=== PATIENT | female | born 2000 | race Caucasian/White ===

== ENCOUNTER 2024-06-03 08:42 | Emergency (ER) | payer SELFPAY ==
[2024-06-03 08:56] VITALS: BP 134/81
[2024-06-03 09:12] LABS: % Basophils 0.3 % (0-2); % Eosinophils 0.1 % (0-6); % Immature Granulocytes 0.3 % (0-0.5); % Lymphocytes 9.6 % (20.5-51.1); % Monocytes 7.5 % (1.7-9.3); % Neutrophils 82.2 % (42.2-75.2); Absolute Lymphocytes 0.7 10^3/uL (1.2-3.4); Absolute Monocytes 0.5 10^3/uL (0.1-0.6); Absolute Neutrophils 5.9 10^3/uL (1.4-6.5); Hematocrit 42.7 % (37.0-47.0); Mean Corp Hgb Conc. 35.1 g/dL (33.0-37.0); Mean Corpuscular Volume 85.4 fL (81.0-99.0); Mean Platelet Volume 9.2 fL (7.4-10.4); Nucleated Red Blood Cells % 0 %; Platelet Count 289 10^3/uL (130-400); Red Cell Dist. Width 13.2 % (11.5-14.5); White Blood Cell Count 7.2 10^3/uL (4.8-10.8)
--- NOTE | 2024-06-03 09:59 | ED.GENMED ---
History of Present Illness
General
Chief Complaint: Abdominal Symptoms
Source: patient
Exam Limitations: none
Time Seen by Provider: 06/03/24 09:45
History of Present Illness
History of Present Illness:
23-year-old otherwise healthy female presents with onset of vomiting right-sided flank discomfort and diarrhea last night. The pain radiated to her abdomen slightly. She noted chills and sweats but no measurable fever. No chest pain or shortness
of breath. No urinary symptoms. Last menstrual cycle was about 2 weeks ago. She has a history of ovarian cyst. No known sick contacts. No other complaints at this time
Past History
Past History
ED Past Medical History: Other (Kidney stones)
ED Past Surgical History: None
Social History
Tobacco: Non-smoker
Alcohol: Occasional
Drug: None
Personal: Single
Living: with family
Phy Exam
Physical Exam
Physical Exam:
General: Well-appearing female no acute respiratory distress
HEENT: Normocephalic atraumatic
Heart: Tachycardic but regular
Lungs: Clear no wheeze
Abdomen soft mild right-sided flank tenderness no tenderness over McBurney's point normal bowel sounds no guarding or rebound
Extremities: No cyanosis
Course
Orders/Labs/Results
Orders:
Orders
06/03/24 08:55
Electrocardiogram (*1) Urgent
Reason for Study: Tachycardia
EKG- Treatment ONCE
Test Result ONCE
06/03/24 09:08
Complete Blood Count/With Diff Urgent
06/03/24 09:58
0.9% Sodium Chloride 1000 ml [Nss] 1,000 ml IV BOLUS
Ketorolac [Toradol] 15 mg IV NOW STA
Ondansetron Injectable [Zofran] 4 mg IV NOW STA
06/03/24 09:59
CT Abd/pel Without Iv Or Oral Urgent
Comment:
Reason For Exam: right flank pain
06/03/24 11:24
Comprehensive Metabolic Panel Urgent
HCG, Serum Qualitative Screen Urgent
06/03/24 11:26
Add On- LAB Urgent
Tests Added?: HCG qual
Abnormal Lab Results
06/03/24 06/03/24
09:08 11:24
Absolute Lymphs (auto) 0.7 L 10^3/uL
(1.2-3.4)
Neutrophils % 82.2 H %
(42.2-75.2)
Lymphocytes % 9.6 L %
(20.5-51.1)
Carbon Dioxide 21 L mmol/L
(22-30)
06/03/24 09:08
06/03/24 11:24
Vital Signs
Initial and Last Documented VS:
Initial Vital Signs
Temp Pulse Resp BP Pulse Ox
98.3 F 122 16 134/81 100
06/03/24 08:56 06/03/24 08:56 06/03/24 08:56 06/03/24 08:56 06/03/24 08:56
Last Documented Vital Signs
Temp Pulse Resp BP Pulse Ox
98.3 F 122 15 112/69 100
06/03/24 08:56 06/03/24 08:56 06/03/24 10:00 06/03/24 11:32 06/03/24 11:45
MDM/Problems Addressed
Differential Diagnosis Includes:
Flank pain vomiting and diarrhea. Consider viral illness versus renal colic. No signs on exam or history to suggest appendicitis. Patient does appear dry concern for electrolyte abnormality. Will check labs hydrate treat symptoms with Zofran and
Toradol. CT with out contrast pending to evaluate for renal stone as she has a history of these
*Critical Care Note
Total Time (30-74mins, 75-104mins- exclusive of procedures): Not Applicable
Update Note
Update Note:
CT demonstrates 2 mm stone in the right ureteropelvic junction this is not obstructing. Patient feeling much better after hydration and nausea medicine. Patient is pain-free currently. Advise follow-up with urology. Stable for discharge
ED Attending Note
-
Portions of this chart may have been created with voice recognition software.� Occasional wrong word or��sound alike� substitutions may have occurred due to the inherent limitations of voice recognition software.
Discharge Plan
Departure
Patient Disposition: Home (Routine Discharge)
Date of Disposition: 06/03/24
Time of Disposition: 12:42
Patient with high blood pressure during this ER visit?: No
Discharge Problem:
Kidney stone
Instructions: Kidney Stone, Adult ED
Prescriptions:
New
ondansetron 4 mg tablet,disintegrating
4 mg PO Q8H PRN (Reason: nausea and vomiting) Qty: 10 0RF
tamsulosin [Flomax] 0.4 mg capsule
0.4 mg PO DAILY Qty: 14 0RF
Referrals:
Yohana Ortiz DO [Family Provider] -
Wesley Cope Jr., MD [Active] -
Activity Restrictions/Additional Instructions:
Drink plenty of fluids. Use Zofran if needed. Use Flomax as directed. Strain the urine. Follow-up with urology
Interventions
Interventions:
*Risk Screen - Suicide Last Done: 06/03/24 08:56
*Neglect/Abuse Screening Last Done: 06/03/24 08:56
*ED COVID-19 Vaccine History Last Done: 06/03/24 08:56
ZY-Hcgkix-Rkecqatxfq Assessment Last Done: 06/03/24 10:41
Discharge Date and Time
Print Language: AMHARIC
[2024-06-03 10:07] VITALS: BMI 27.0
[2024-06-03] MEDS: TORADOL 15 MG IV (11:00)
[2024-06-03] MEDS: NSS 1000 IV (11:00)
[2024-06-03] MEDS: ZOFRAN 4 MG IV (11:00)
[2024-06-03 11:32] VITALS: BP 112/69
[2024-06-03 11:45] LABS: HCG, Serum Qualitative Screen Negative
[2024-06-03 11:49] LABS: ALT (SGPT) 16 U/L (0-35); AST (SGOT) 17 U/L (14-36); Albumin 4.4 g/dl (3.5-5.0); Alkaline Phosphatase 47 U/L (38-126); Blood Urea Nitrogen 12 mg/dl (7-17); Carbon Dioxide 21 mmol/L (22-30); Chloride 103 mmol/L (98-107); Estimated Creatinine Clearance > 125 ml/min; Glucose 83 mg/dl (70-99); Potassium 3.6 mmol/L (3.5-5.1); Sodium 139 mmol/L (135-145); Total Bilirubin 0.6 mg/dl (0.2-1.3); Total Protein 6.8 g/dl (6.3-8.2); eGFR > 60.00
== END 2024-06-03 12:54 | disposition home or self-care (01) ==
LOC: EMR 08:42
PROVIDERS: Emergency Medicine; EMERGENCY PHYSICIAN Student in an Organized Health Care Education/Training Program; FAMILY PHYSICIAN Family Medicine
DX: N20.0 Calculus of kidney (principal); Z87.442 Personal history of urinary calculi
CPT/HCPCS: 99284; 96374; 96375; 96361; 74176; 80053; 84703; 85025; 93005

== ENCOUNTER 2024-06-15 00:42 | Emergency (ER) | payer OTHER, SELFPAY ==
[2024-06-15 00:43] VITALS: BP 134/94
[2024-06-15 01:01] LABS: Urine Albumin Trace (Neg - Trace); Urine Bilirubin Negative (Negative); Urine Character Slightly Cloudy (Clear); Urine Color Yellow; Urine Glucose Negative (Negative); Urine Ketone Trace (Negative); Urine Leukocyte Trace (Negative); Urine Nitrite Negative (Negative); Urine Occult Blood 4+ (Negative); Urine Urobilinogen Negative (Neg - 1+)
[2024-06-15 01:04] LABS: HCG, Urine Qualitative Screen Negative
[2024-06-15 01:13] LABS: Urine Amorphous Seen; Urine Bacteria Many (Negative); Urine Mucus Many; Urine Red Blood Cell >100 /HPF (0-2); Urine Squamous Cell >30 /LPF (Few)
[2024-06-15 01:21] LABS: Urine Yeast Few (Negative)
--- NOTE | 2024-06-15 01:44 | ED.GENMED ---
History of Present Illness
<LENA Covarrubias - Last Filed: 06/15/24 17:57>
General
Chief Complaint: Flank Pain
Source: patient
Exam Limitations: none
Time Seen by Provider: 06/15/24 01:33
History of Present Illness
History of Present Illness:
This is a 23 year old female that comes in with c/o left flank pain. States that she was here 2 weeks ago for kidney stones. States that she went to Se her PCP This week. States that she was told that there were 4 stones in her kidney. State that
around 5pm tonight she started with pain in her bladder. States that she thought it was a UTI. Then she started with left flank pain with nausea and vomiting. States that when she went to the Bathroom her she thought she saw a stone in her urine.
States that now she just feels sore. Denies any fever, chills, chest pain, SOB, diarrhea, headache, dizziness, urinary burning.
Past History
<LENA Covarrubias - Last Filed: 06/15/24 17:57>
Past History
ED Past Medical History: Asthma and Other (Kidney stones)
ED Past Surgical History: None
Social History
Tobacco: Non-smoker
Alcohol: Occasional
Drug: None
Personal: Single
Living: with family
Review of Systems
<LENA Covarrubias - Last Filed: 06/15/24 17:57>
Review of Systems
All Other Systems: ROS reviewed and negative except as documented in HPI and ROS
Constitutional: Reports no symptoms; Denies fever or chills
EENT: Reports no symptoms
Respiratory: Reports no symptoms; Denies cough or trouble breathing
Cardiac: Reports no symptoms; Denies chest pain
ABD/GI: Reports nausea and vomiting; Denies abdominal pain or diarrhea
: Reports flank pain (Left sided); Denies dysuria, frequency or urgency
Musculoskeletal: Reports no symptoms
Skin: Reports no symptoms
Neurological: Reports no symptoms; Denies dizzy or headache
Psychiatric: Reports no symptoms
Phy Exam
<LENA Covarrubias - Last Filed: 06/15/24 17:57>
General Physical Exam
General Presentation: well appearing and no apparent distress
General age: appears stated age
General Skin: warm and dry
General Habitus: normal
General Mental: alert
General Hydration: appears well hydrated
ENT Exam
ENT Exam: TM's normal, pharynx normal and neck supple
Eye Exam
Eye Exam: EOMI
Cardiovascular Exam
Cardiovascular Exam: regular rate/rhythm, no edema, no murmur and normal peripheral pulses
Pulmonary Exam
Pulmonary Exam: lungs clear, no respiratory distress, no rales, chest non tender, no crackles, no rhonchi, no wheezing and no cough
Gastrointestinal Exam
Gastrointestinal Exam: normal bowel sounds, soft, no organomegaly, no pulsatile mass, non distended, cva tenderness and tender (Slight left sided 'soreness' with palpation)
Musculoskeletal Exam
Musculoskeletal Exam: full ROM and no edema
Skin Exam
Skin Exam: normal color, warm/dry, no rash and no petechia
Psychiatric Exam
Psychiatric Exam: normal mood/affect
Course
<LENA Covarrubias - Last Filed: 06/15/24 17:57>
Orders/Labs/Results
Orders:
Orders
06/15/24 00:47
Test Result ONCE
06/15/24 00:50
HCG, Urine Qualitative Screen Urgent
Date Specimen was Collected: 06/15/24
Time Specimen was Collected: 00:47
Urinalysis Reflex To Culture Urgent
Date Specimen was Collected: 06/15/24
Time Specimen was Collected: 00:47
Urine Microscopic Reflex Cult Urgent
Urine Culture Urgent
MARYCARMEN Source: U
Specimen Description:
Date Specimen was Collected: 06/15/24
Time Specimen was Collected: 00:47
06/15/24 01:43
0.9% Sodium Chloride 1000 ml [Nss] 1,000 ml IV BOLUS
Test Result ONCE
US Renal With Bladder Urgent
Comment:
Reason For Exam: Left flank pain and bladder pain
06/15/24 02:21
Complete Blood Count/With Diff Urgent
Comprehensive Metabolic Panel Urgent
06/15/24 02:26
Ketorolac [Toradol] 30 mg IV NOW STA
Abnormal Lab Results
06/15/24 06/15/24
00:50 02:21
WBC 12.1 H 10^3/uL
(4.8-10.8)
Absolute Neuts (auto) 9.1 H 10^3/uL
(1.4-6.5)
Absolute Monos (auto) 1.0 H 10^3/uL
(0.1-0.6)
Neutrophils % 75.5 H %
(42.2-75.2)
Lymphocytes % 14.3 L %
(20.5-51.1)
Urine Ketones Trace A
(Negative)
Ur Occult Blood Reflex 4+ A
(Negative)
Leukocyte Esterase Rfl Trace A
(Negative)
Urine RBC >100 A /HPF
(0-2)
Urine Bacteria (Reflex) Many A
(Negative)
Urine Yeast Few A
(Negative)
06/15/24 02:21
06/15/24 02:21
Urine negative for infection. HCG negative, Leukocytosis,
Vital Signs
Initial and Last Documented VS:
Initial Vital Signs
Temp Pulse Resp BP Pulse Ox
98.2 F 86 16 134/94 99
06/15/24 00:43 06/15/24 00:43 06/15/24 00:43 06/15/24 00:43 06/15/24 00:43
Last Documented Vital Signs
Temp Pulse Resp BP Pulse Ox
97.4 F 72 14 123/66 99
06/15/24 06:14 06/15/24 06:14 06/15/24 06:14 06/15/24 06:14 06/15/24 06:14
<Alfonso Pathak, DO - Last Filed: 06/15/24 06:09>
Orders/Labs/Results
Orders:
Orders
06/15/24 00:47
Test Result ONCE
06/15/24 00:50
HCG, Urine Qualitative Screen Urgent
Date Specimen was Collected: 06/15/24
Time Specimen was Collected: 00:47
Urinalysis Reflex To Culture Urgent
Date Specimen was Collected: 06/15/24
Time Specimen was Collected: 00:47
Urine Microscopic Reflex Cult Urgent
Urine Culture Urgent
MARYCARMEN Source: U
Specimen Description:
Date Specimen was Collected: 06/15/24
Time Specimen was Collected: 00:47
06/15/24 01:43
0.9% Sodium Chloride 1000 ml [Nss] 1,000 ml IV BOLUS
Test Result ONCE
US Renal With Bladder Urgent
Comment:
Reason For Exam: Left flank pain and bladder pain
06/15/24 02:21
Complete Blood Count/With Diff Urgent
Comprehensive Metabolic Panel Urgent
06/15/24 02:26
Ketorolac [Toradol] 30 mg IV NOW STA
Abnormal Lab Results
06/15/24 06/15/24
00:50 02:21
WBC 12.1 H 10^3/uL
(4.8-10.8)
Absolute Neuts (auto) 9.1 H 10^3/uL
(1.4-6.5)
Absolute Monos (auto) 1.0 H 10^3/uL
(0.1-0.6)
Neutrophils % 75.5 H %
(42.2-75.2)
Lymphocytes % 14.3 L %
(20.5-51.1)
Urine Ketones Trace A
(Negative)
Ur Occult Blood Reflex 4+ A
(Negative)
Leukocyte Esterase Rfl Trace A
(Negative)
Urine RBC >100 A /HPF
(0-2)
Urine Bacteria (Reflex) Many A
(Negative)
Urine Yeast Few A
(Negative)
06/15/24 02:21
06/15/24 02:21
Vital Signs
Initial and Last Documented VS:
Initial Vital Signs
Temp Pulse Resp BP Pulse Ox
98.2 F 86 16 134/94 99
06/15/24 00:43 06/15/24 00:43 06/15/24 00:43 06/15/24 00:43 06/15/24 00:43
Last Documented Vital Signs
Temp Pulse Resp BP Pulse Ox
97.4 F 72 14 123/66 99
06/15/24 06:14 06/15/24 06:14 06/15/24 06:14 06/15/24 06:14 06/15/24 06:14
<LENA Covarrubias - Last Filed: 06/15/24 17:57>
MDM/Problems Addressed
Differential Diagnosis Includes:
renal calculus, UTI
MDM/Problems Addressed:
This is a 23 year old female that comes in with c/o bladder pain and then nausea, vomiting and left flank pain. Patient as here 2 weeks ago with renal calculus. State that she was told that there was 4 stones in her kidney. Tonight she started with
bladder pain and then she has nausea/vomiting and the left flank pain.
Will check labs, and urine, Give IV fluids, and get Ultrasound
Dr. Pathak to follow up on US and recheck patient.
Chronic conditions affecting care:
Renal calculus
Acute Exacerbation and/or Progression of Chronic Illness:
Renal calculus
<LENA Covarrubias - Last Filed: 06/15/24 17:57>
*Pulse Oximetry
Patient hypoxic: no
*EKG
Interpreted by ED Provider?: NA
Rate: EKG- N/A
*Drive Away Driver Interpretation
Rate: Drive Away Driver- N/A
*Critical Care Note
Total Time (30-74mins, 75-104mins- exclusive of procedures): Not Applicable
ED Attending Note
<LENA Covarrubias - Last Filed: 06/15/24 17:57>
-
Portions of this chart may have been created with voice recognition software.� Occasional wrong word or��sound alike� substitutions may have occurred due to the inherent limitations of voice recognition software.
<Alfonso Pathak, DO - Last Filed: 06/15/24 06:09>
ED Attending Note
Patient seen and examined by attending physician: Yes
I performed the substantive portion of visit, reviewed & personally made and approve the management plan that is documented in note by myself or CAROLEE.: Yes
ED Attending Note:
I have seen and evaluated the patient with a [id number] encounter. I have spoken to the advance practicer provider and involved in the medical history, the physical exam, medical decision making.
Evaluation and management service: agree unless noted differently below.
Results interpretation: agree unless noted differently below.
Focused HPI: 23-year-old female presenting with left flank pain. She has a known history of kidney stones. Patient believes she is passing stones in her urine
Physical exam: Sitting in bed comfortably. No acute distress
Medical Decision Making: Renal ultrasound was performed showing no evidence of hydronephrosis indicating that she likely does not have obstructive uropathy. Urine consistent with hematuria. Patient states she has been passing sediment. There is
sediment stone in bladder discussed likely passed as well. She has urology follow-up
Discharge Plan
Departure
Patient Disposition: Home (Routine Discharge)
Date of Disposition: 06/15/24
Time of Disposition: 06:07
Patient with high blood pressure during this ER visit?: No
Condition: Good
Covid-19: Not Applicable
Discharge Problem:
Acute left flank pain
Prescriptions:
No Action
ondansetron 4 mg tablet,disintegrating
4 mg PO Q8H PRN (Reason: nausea and vomiting) Qty: 10 0RF
tamsulosin [Flomax] 0.4 mg capsule
0.4 mg PO DAILY Qty: 14 0RF
Referrals:
Yohana Ortiz DO [Family Provider] -
Activity Restrictions/Additional Instructions:
Please return for any worsening symptoms.
You may return at any time if you have further concerns.
Please keep your urology follow-up. As we discussed, you are likely passing stones. The ultrasound indicated that there is sediment in your bladder. This is likely a collection of small stones that will pass.
Thank you for choosing [facility].
Interventions
Interventions:
*Risk Screen - Suicide Last Done: 06/15/24 00:47
*General Assessment Last Done: 06/15/24 00:43
*Neglect/Abuse Screening Last Done: 06/15/24 00:47
ED- Fall Risk Assessment Last Done: 06/15/24 06:14
*ED COVID-19 Vaccine History Last Done: 06/15/24 00:43
*Nursing Disposition Last Done: 06/15/24 06:14
IK-Rlrvun-Sssfmrsapb Assessment Last Done: 06/15/24 02:00
ED-Female Genitourinary Assessment Last Done: 06/15/24 02:00
Discharge Date and Time
Discharge Date/Time: 06/15/24 06:17
Print Language: GUYANESE
[2024-06-15 01:59] VITALS: BMI 28.2
[2024-06-15] MEDS: NSS 1000 IV (02:23)
[2024-06-15] MEDS: TORADOL 30 MG IV (02:29)
[2024-06-15 02:32] LABS: % Basophils 0.6 % (0-2); % Eosinophils 0.8 % (0-6); % Immature Granulocytes 0.3 % (0-0.5); % Lymphocytes 14.3 % (20.5-51.1); % Monocytes 8.5 % (1.7-9.3); % Neutrophils 75.5 % (42.2-75.2); Absolute Basophils 0.1 10^3/uL (0-0.2); Absolute Eosinophils 0.1 10^3/uL (0-0.7); Absolute Lymphocytes 1.7 10^3/uL (1.2-3.4); Absolute Neutrophils 9.1 10^3/uL (1.4-6.5); Hematocrit 41.7 % (37.0-47.0); Hemoglobin 14.1 g/dL (12.0-16.0); Mean Corp Hgb Conc. 33.8 g/dL (33.0-37.0); Mean Corpuscular Hgb 29.6 pg (27.0-31.0); Mean Corpuscular Volume 87.4 fL (81.0-99.0); Mean Platelet Volume 9.2 fL (7.4-10.4); Nucleated Red Blood Cells % 0 %; Platelet Count 369 10^3/uL (130-400); Red Blood Cell Count 4.77 10^6/uL (4.20-5.40); Red Cell Dist. Width 13.1 % (11.5-14.5); White Blood Cell Count 12.1 10^3/uL (4.8-10.8)
[2024-06-15 02:53] LABS: ALT (SGPT) 33 U/L (0-35); AST (SGOT) 24 U/L (14-36); Albumin 4.9 g/dl (3.5-5.0); Alkaline Phosphatase 54 U/L (38-126); Blood Urea Nitrogen 11 mg/dl (7-17); Calcium 9.8 mg/dl (8.4-10.2); Carbon Dioxide 26 mmol/L (22-30); Chloride 104 mmol/L (98-107); Estimated Creatinine Clearance 119 ml/min; Glucose 85 mg/dl (70-99); Potassium 4.1 mmol/L (3.5-5.1); Sodium 143 mmol/L (135-145); Total Bilirubin 0.5 mg/dl (0.2-1.3); Total Protein 7.4 g/dl (6.3-8.2); eGFR > 60.00
[2024-06-15 03:06] VITALS: BP 126/64
[2024-06-15 06:14] VITALS: BP 123/66
== END 2024-06-15 06:17 | disposition home or self-care (01) ==
LOC: EMR 00:42
PROVIDERS: Clinical Nurse Specialist Family Health; EMERGENCY PHYSICIAN Student in an Organized Health Care Education/Training Program; FAMILY PHYSICIAN Family Medicine
DX: N20.0 Calculus of kidney (principal); J45.909 Unspecified asthma, uncomplicated
CPT/HCPCS: 96374; 96361; 99284; 76770; 80053; 81003; 81015; 81025; 85025; 87086

== ENCOUNTER 2025-01-18 08:37 | Emergency (ER) | payer OTHER, SELFPAY ==
[2025-01-18 08:39] VITALS: BP 125/93
--- NOTE | 2025-01-18 09:05 | ED.GENMED ---
History of Present Illness
General
Chief Complaint: Flank Pain
Source: patient, records and family
Exam Limitations: none
Time Seen by Provider: 01/18/25 08:43
History of Present Illness
History of Present Illness:
24yoF with a history of kidney stones presenting with her mother for evaluation of left flank pain. Symptoms started yesterday evening with a mild ache in her left flank. She took a dose of Flomax which did seem to help. She woke up this morning
around 7 AM with worsening pain. She is now experiencing nausea and had 2 episodes of vomiting. She also has 'UTI pain' but denies any dysuria. Symptoms are identical to her prior kidney stones. She has a history of numerous kidney stones in the
past dating back to age 12. She has never required surgery. She denies any fevers.
Past History
Past History
ED Past Medical History: Asthma and Other (Kidney stones)
ED Past Surgical History: None
Social History
Tobacco: Non-smoker
Alcohol: Occasional
Drug: None
Personal: Single
Living: with family
Phy Exam
Physical Exam
Physical Exam:
Appears uncomfortable, non-toxic
General Physical Exam
General Presentation: mild distress
General Skin: warm and dry
General Habitus: normal
General Mental: alert
ENT Exam
ENT Exam: normocephalic
Pulmonary Exam
Pulmonary Exam: lungs clear, no respiratory distress, no rales, no crackles, no rhonchi and no wheezing
Gastrointestinal Exam
Gastrointestinal Exam: non tender, soft, non distended and other (+L CVA tenderness)
Neurological Exam
Neurological Exam: alert
[place] Coma Scale
Eye Opening: Spontaneous
Verbal Response: Oriented
Motor Response: Obeys Commands
GCS Total Score: 15
Skin Exam
Skin Exam: normal color and warm/dry
Psychiatric Exam
Psychiatric Exam: normal mood/affect
Course
Orders/Labs/Results
Orders:
Orders
01/18/25 09:03
CT Abd/pel Without Iv Or Oral Urgent
Comment:
Reason For Exam: L flank pain
0.9% Sodium Chloride 1000 ml [Nss] 1,000 ml IV BOLUS
HYDROmorphone [Dilaudid] 0.5 mg IV NOW STA
Ketorolac [Toradol] 15 mg IV NOW STA
Test Result ONCE
01/18/25 09:08
Ondansetron HCl [Zofran] 4 mg PO NOW STA
01/18/25 09:12
Ondansetron Injectable [Zofran] 4 mg .ROUTE .STK-MED ONE
Ondansetron Injectable [Zofran] 4 mg IV NOW STA
01/18/25 09:29
Complete Blood Count/With Diff Urgent
Comprehensive Metabolic Panel Urgent
HCG, Serum Qualitative Screen Urgent
Urinalysis Reflex To Culture Urgent
Date Specimen was Collected: 01/18/25
Time Specimen was Collected: 09:11
Urine Microscopic Reflex Cult Urgent
Urine Culture Urgent
MARYCARMEN Source: U
Specimen Description:
Date Specimen was Collected: 01/18/25
Time Specimen was Collected: 09:11
01/18/25 11:41
Ketorolac [Toradol] 15 mg IV NOW STA
Abnormal Lab Results
01/18/25
09:29
WBC 11.0 H 10^3/uL
(4.8-10.8)
Absolute Neuts (auto) 8.0 H 10^3/uL
(1.4-6.5)
Absolute Monos (auto) 0.8 H 10^3/uL
(0.1-0.6)
Lymphocytes % 17.8 L %
(20.5-51.1)
Chloride 111 H mmol/L
(98-107)
Carbon Dioxide 21 L mmol/L
(22-30)
Ur Occult Blood Reflex 4+ A
(Negative)
Leukocyte Esterase Rfl 1+ A
(Negative)
Urine RBC >100 A /HPF
(0-2)
Urine WBC (Reflex) 11-15 A /HPF
(0-5)
Urine Bacteria (Reflex) Moderate A
(Negative)
Urine Albumin (Reflex) 3+ A
(Neg - Trace)
01/18/25 09:29
01/18/25 09:29
Vital Signs
Initial and Last Documented VS:
Initial Vital Signs
Temp Pulse Resp BP Pulse Ox
98.4 F 86 18 125/93 100
01/18/25 08:39 01/18/25 08:39 01/18/25 08:39 01/18/25 08:39 01/18/25 08:39
Last Documented Vital Signs
Temp Pulse Resp BP Pulse Ox
98.4 F 86 18 125/93 100
01/18/25 08:39 01/18/25 08:39 01/18/25 08:39 01/18/25 08:39 01/18/25 09:08
MDM/Problems Addressed
Differential Diagnosis Includes:
24yoF here with L flank pain and vomiting. Hx of kidney stones and this feels the same. VSS and she is afebrile. She appears uncomfortable but is non-toxic. +L CVA tenderness on exam. Differential diagnosis includes but is not limited to: kidney
stone, pyelonephritis, UTI, musculoskeletal
Initial ED plan: Check CBC, CMP, HCG, UA, and CT abdomen without contrast. IV Zofran, Toradol, Dilaudid, and fluid bolus for symptoms.
*Pulse Oximetry
SaO2: 100
Oxygen Mode of Delivery: Room air
Patient hypoxic: no (100%)
*Critical Care Note
Total Time (30-74mins, 75-104mins- exclusive of procedures): Not Applicable
Update Note
Update Note:
CT shows a 3mm stone in the L UVJ. Renal function normal. UA with 11-15 WBC and moderate bacteria although 16-20/LPF squamous epithelial cells present. WBC is mildly elevated at 11 which may be reactive 2/2 vomiting. Repeat temp 98.5. She is
feeling much better on reassessment and is comfortable with discharge. Will cover with cefdinir for possible infection. Supportive care reviewed. Patient declining prescriptions for oxycodone/Zofran. Advised f/u with urology and strict ED return
precautions reviewed. Patient discharged in stable condition.
ED Attending Note
-
Portions of this chart may have been created with voice recognition software.� Occasional wrong word or��sound alike� substitutions may have occurred due to the inherent limitations of voice recognition software.
Discharge Plan
Departure
Patient Disposition: Home (Routine Discharge)
Date of Disposition: 01/18/25
Time of Disposition: 11:41
Patient with high blood pressure during this ER visit?: No
Discharge Problem:
Calculus of distal left ureter, Urinary tract infection
Instructions: Kidney Stones (DC)
Prescriptions:
New
cefdinir 300 mg capsule
300 mg PO BID Qty: 14 0RF
No Action
ondansetron 4 mg tablet,disintegrating
4 mg PO Q8H PRN (Reason: nausea and vomiting) Qty: 10 0RF
tamsulosin [Flomax] 0.4 mg capsule
0.4 mg PO DAILY Qty: 14 0RF
Referrals:
Yohana Ortiz DO [Family Provider, Family Practice]
Daniel Del Valle MD [Active, Urology]
Activity Restrictions/Additional Instructions:
Drink plenty of fluids. Take Flomax and strain your urine until stone has passed.
Take antibiotics as prescribed. Take Tylenol and ibuprofen for pain.
Please call tomorrow to schedule a follow-up with urology. Return to the ER with any worsening symptoms including uncontrolled pain or fevers.
Interventions
Interventions:
*Risk Screen - Suicide Last Done: 01/18/25 08:43
*General Assessment Last Done: 01/18/25 09:46
*Neglect/Abuse Screening Last Done: 01/18/25 08:43
*ED- Fall Risk Assessment Last Done: 01/18/25 09:46
*ED COVID-19 Vaccine History Last Done: 01/18/25 09:46
*Nursing Disposition Last Done: 01/18/25 12:00
VW-Xbnyml-Pxkzdcpkrk Assessment Last Done: 01/18/25 09:46
ED-Female Genitourinary Assessment Last Done: 01/18/25 09:46
Discharge Date and Time
Discharge Date/Time: 01/18/25 12:00
Print Language: MEXICAN
[2025-01-18] MEDS: TORADOL 15 MG IV ×3 (09:24→12:00)
[2025-01-18] MEDS: NSS 1000 IV (09:26)
[2025-01-18] MEDS: ZOFRAN 4 MG IV (09:26)
[2025-01-18] MEDS: DILAUDID 0.5 MG IV (09:27)
[2025-01-18 09:41] LABS: % Basophils 0.7 % (0-2); % Eosinophils 1.1 % (0-6); % Immature Granulocytes 0.4 % (0-0.5); % Lymphocytes 17.8 % (20.5-51.1); % Monocytes 7.3 % (1.7-9.3); % Neutrophils 72.7 % (42.2-75.2); Absolute Basophils 0.1 10^3/uL (0-0.2); Absolute Eosinophils 0.1 10^3/uL (0-0.7); Absolute Monocytes 0.8 10^3/uL (0.1-0.6); Hematocrit 39.4 % (37.0-47.0); Hemoglobin 13.9 g/dL (12.0-16.0); Mean Corp Hgb Conc. 35.3 g/dL (33.0-37.0); Mean Corpuscular Hgb 30.8 pg (27.0-31.0); Mean Corpuscular Volume 87.4 fL (81.0-99.0); Mean Platelet Volume 9.6 fL (7.4-10.4); Nucleated Red Blood Cells % 0 %; Platelet Count 391 10^3/uL (130-400); Red Blood Cell Count 4.51 10^6/uL (4.20-5.40)
[2025-01-18 09:52] LABS: Urine Albumin 3+ (Neg - Trace); Urine Bilirubin Negative (Negative); Urine Character Cloudy (Clear); Urine Color Yellow; Urine Glucose Negative (Negative); Urine Ketone Negative (Negative); Urine Leukocyte 1+ (Negative); Urine Nitrite Negative (Negative); Urine Occult Blood 4+ (Negative); Urine Urobilinogen Negative (Neg - 1+)
[2025-01-18 10:00] LABS: HCG, Serum Qualitative Screen Negative
[2025-01-18 10:09] LABS: ALT (SGPT) 17 U/L (0-35); AST (SGOT) 17 U/L (14-36); Albumin 4.9 g/dl (3.5-5.0); Alkaline Phosphatase 46 U/L (38-126); Blood Urea Nitrogen 7 mg/dl (7-17); Calcium 10.2 mg/dl (8.4-10.2); Carbon Dioxide 21 mmol/L (22-30); Chloride 111 mmol/L (98-107); Glucose 89 mg/dl (70-99); Potassium 4.2 mmol/L (3.5-5.1); Sodium 144 mmol/L (135-145); Total Bilirubin 0.4 mg/dl (0.2-1.3); Total Protein 7.3 g/dl (6.3-8.2); eGFR > 60.00
[2025-01-18 10:43] LABS: Urine Calcium Oxalate Crystals Seen; Urine Squamous Cell 16-20 /LPF (Few)
[2025-01-18 10:44] LABS: Urine Bacteria Moderate (Negative); Urine Red Blood Cell >100 /HPF (0-2)
== END 2025-01-18 12:00 | disposition home or self-care (01) ==
LOC: EMR 08:37
PROVIDERS: Physician Assistant; EMERGENCY PHYSICIAN Emergency Medicine; FAMILY PHYSICIAN Family Medicine
DX: N20.1 Calculus of ureter (principal); J45.909 Unspecified asthma, uncomplicated; Z87.442 Personal history of urinary calculi
CPT/HCPCS: 99284; 96374; 96375; 96376; 96361; 74176; 80053; 81003; 81015; 84703; 85025; 87086

== ENCOUNTER 2025-01-18 18:52 | Emergency (ER) | payer OTHER, SELFPAY ==
[2025-01-18 18:54] VITALS: BP 115/81
--- NOTE | 2025-01-18 19:29 | ED.GENMED ---
History of Present Illness
General
Chief Complaint: Flank Pain
Source: patient and family
Exam Limitations: none
Time Seen by Provider: 01/18/25 19:01
Nursing documentation reviewed up to this point in time: agreed with
History of Present Illness
History of Present Illness:
Patient is a 24-year-old female with history of kidney stones presents to the emergency department with intractable left flank pain. Patient was seen in the emergency department this morning and diagnosed with 3 mm stone near her left UVJ. She was
treated with IV pain medicine and discharged home, comfortable at that time.
Patient states that she started to have worsening pain around 6 PM associated with significant nausea. She denies any episodes of vomiting. She denies any fever or chills. No dysuria or hematuria.
They were concerned given the fact that urine appeared possibly infected and the fact that she had multiple intrarenal calculi noted on CT scan.
Patient has a history of kidney stones that is never required any surgical intervention.
Past History
Past History
ED Past Medical History: Asthma and Other (Kidney stones)
ED Past Surgical History: None
Social History
Tobacco: Non-smoker
Alcohol: Occasional
Drug: None
Personal: Single
Living: with family
Review of Systems
Review of Systems
Allergies reviewed?: Yes
All Other Systems: ROS reviewed and negative except as documented in HPI and ROS
Phy Exam
Physical Exam
Physical Exam:
Vitals: Patient's vital signs are stable. Afebrile
General: Patient is well appearing, no acute distress. Nontoxic appearing
Skin: Warm and dry, no rashes or lesions
Head: Normocephalic, atraumatic
Eyes: Sclera nonicteric.
Throat: Protecting airway
Neck: Normal ROM, no cervical spine tenderness, no meningismus
Cardiac: Regular rate and rhythm, no murmurs.
Pulm: Normal respiratory effort, no wheezes, rales, rhonchi heard on exam
.
Abdomen: Abdomen soft. Mild tenderness in left lower quadrant. Mild left CVA tenderness.
Extremities: No evidence of cyanosis or edema. Palpable DP pulses bilaterally
Neuro: AAOx3. Grossly intact.
Psychiatric: Normal affect.
Course
Orders/Labs/Results
Orders:
Orders
01/18/25 19:22
0.9% Sodium Chloride 1000 ml [Nss] 1,000 ml IV BOLUS
Ketorolac [Toradol] 15 mg IV NOW STA
Ondansetron Injectable [Zofran] 4 mg IV NOW STA
01/18/25 20:22
HYDROmorphone [Dilaudid] 0.5 mg .ROUTE .STK-MED ONE
HYDROmorphone [Dilaudid] 0.5 mg IV NOW STA
01/18/25 21:25
Oxycodone [Roxicodone] 5 mg PO NOW STA
Vital Signs
Initial and Last Documented VS:
Initial Vital Signs
Temp Pulse Resp BP Pulse Ox
98.2 F 68 20 115/81 99
01/18/25 18:54 01/18/25 18:54 01/18/25 18:54 01/18/25 18:54 01/18/25 18:54
Last Documented Vital Signs
Temp Pulse Resp BP Pulse Ox
98.1 F 62 17 105/74 98
01/18/25 21:24 01/18/25 21:24 01/18/25 21:24 01/18/25 21:24 01/18/25 21:24
MDM/Problems Addressed
Differential Diagnosis Includes:
Not limited to: Nephrolithiasis, intractable pain, UTI, etc.
MDM/Problems Addressed:
24-year-old female recently discharged from ED with known 3 mm stone at left UVJ presenting with intractable renal colic. She was discharged and then states pain returned around 6 PM not controlled with Motrin. She had initially declined any
prescriptions for oxycodone. She reports associated nausea although denies any episodes of vomiting. She has not yet passed stone. Patient has stable vital signs on arrival. Physical exam as above.
Did review patient's ED visit from this morning which included lab work, urinalysis, CT scan. Her labs were unremarkable other than a mild elevation in white blood cells of 11 suspected to be secondary to vomiting. Chemistry unremarkable. Her
urine did show moderate bacteria and 11-15 WBCs however also 16�20 squamous cells suggesting likely contamination. CT revealed 3 mm stone at left UVJ with mild hydronephrosis.
No indication for repeat labs, urine, or imaging at this time. Will treat pain and reassess.
Update: On reassessment�patient symptoms significantly improved following Toradol/Dilaudid. She is very well-appearing. Lengthy discussion with patient and patient's mother regarding admission for pain control versus discharge home. Shared
decision making utilized and ultimately patient opts to be discharged home. She will follow closely with urology, primary care. Advised NSAIDs, Flomax, fluids and will send very few tablets of oxycodone for intractable pain. Advised to continue
oral antibiotics as prescribed pending culture results. Very strict return precautions discussed including intractable pain or any evidence of infection. Patient and patient's daughter comfortable with plan.
Chronic conditions affecting care:
History of kidney stones
Acute Exacerbation and/or Progression of Chronic Illness:
Intractable pain secondary to left UVJ stone
*Pulse Oximetry
SaO2: 99
Oxygen Mode of Delivery: Room air
Patient hypoxic: no
*EKG
Interpreted by ED Provider?: NA
*Health And Wellness Manager Interpretation
Rate: Health And Wellness Manager- N/A
*Critical Care Note
Total Time (30-74mins, 75-104mins- exclusive of procedures): Not Applicable
Data Reviewed
Review of Other/Old Records Reveals: Labs (Labs performed this morning which revealed mild leukocytosis, no abnormalities on chemistry; UA from this morning which revealed many RBCs, otherwise suggestive of contamination) and Radiology Studies (CT
scan from this morning which shows 3 mm stone at left UVJ with mild left hydroureteronephrosis)
Patient Management
Escalation/DeEscalation of care consider admission/obs:
Considered admission for pain control however symptoms are completely resolved at this time and patient would prefer discharge home with pain control at home as well as PCP/urology follow-up
ED Attending Note
-
Portions of this chart may have been created with voice recognition software.� Occasional wrong word or��sound alike� substitutions may have occurred due to the inherent limitations of voice recognition software.
Discharge Plan
Departure
Patient Disposition: Home (Routine Discharge)
Date of Disposition: 01/18/25
Time of Disposition: 21:21
Patient with high blood pressure during this ER visit?: No
Discharge Problem:
Calculus of distal left ureter, Renal colic on left side
Instructions: Kidney Stones (DC), Flank Pain (DC), How to Strain Your Urine
Prescriptions:
New
oxycodone 5 mg tablet
5 mg PO Q8H PRN (Reason: Pain) Qty: 5 0RF
ondansetron 4 mg tablet,disintegrating
4 mg PO Q8H PRN (Reason: nausea and vomiting) Qty: 5 0RF
No Action
ondansetron 4 mg tablet,disintegrating
4 mg PO Q8H PRN (Reason: nausea and vomiting) Qty: 10 0RF
tamsulosin [Flomax] 0.4 mg capsule
0.4 mg PO DAILY Qty: 14 0RF
cefdinir 300 mg capsule
300 mg PO BID Qty: 14 0RF
Referrals:
Yohana Ortiz DO [Family Provider, Family Practice]
Daniel Del Valle MD [Active, Urology] - Next open appointment
Activity Restrictions/Additional Instructions:
RETURN TO THE EMERGENCY DEPARTMENT WITH ANY FEVERS, CHILLS, INTRACTABLE PAIN, INTRACTABLE NAUSEA/VOMITING, WORSENING OF CURRENT SYMPTOMS, OR ANY OTHER CONCERNS
-As discussed�continue to take antibiotic as prescribed. You should take 1 Flomax daily until you passed the stone. Continue to stay well-hydrated and strain your urine.
-For pain control, please take 600 mg of ibuprofen every 6-8 hours. You can take Tylenol, as well. For intractable pain�you can take oxycodone. This may cause drowsiness you should not take prior to driving. A prescription for Zofran is also and
sent to your pharmacy you can take as needed for intractable nausea/vomiting
- Follow-up with primary care and urology for further evaluation/management and to ensure that symptoms are improving
Monitor your symptoms closely and return to the emergency department with any acute worsening/new symptoms or any signs of infection
Interventions
Interventions:
*Risk Screen - Suicide Last Done: 01/18/25 19:40
*General Assessment Last Done: 01/18/25 18:54
*Neglect/Abuse Screening Last Done: 01/18/25 19:40
*ED- Fall Risk Assessment Last Done: 01/18/25 19:40
*ED COVID-19 Vaccine History Last Done: 01/18/25 19:40
*Nursing Disposition Last Done: 01/18/25 21:34
PL-Aiouat-Vuozwmegui Assessment Last Done: 01/18/25 19:42
ED-Female Genitourinary Assessment Last Done: 01/18/25 19:42
Discharge Date and Time
Discharge Date/Time: 01/18/25 21:34
Print Language: TURKISH
[2025-01-18] MEDS: TORADOL 15 MG IV (19:39)
[2025-01-18] MEDS: ZOFRAN 4 MG IV (19:39)
[2025-01-18] MEDS: NSS 1000 IV (19:39)
[2025-01-18 19:40] VITALS: BMI 24.9
[2025-01-18] MEDS: DILAUDID 0.5 MG IV (20:23)
[2025-01-18 21:24] VITALS: BP 105/74
[2025-01-18] MEDS: ROXICODONE 5 MG PO (21:29)
== END 2025-01-18 21:34 | disposition home or self-care (01) ==
LOC: EMR 18:52
PROVIDERS: EMERGENCY PHYSICIAN Emergency Medicine; FAMILY PHYSICIAN Family Medicine
DX: N13.2 Hydronephrosis with renal and ureteral calculous obstruction (principal); J45.909 Unspecified asthma, uncomplicated; Z87.442 Personal history of urinary calculi
CPT/HCPCS: 99282; 96374; 96375; 96361

== ENCOUNTER 2025-01-26 06:17 | Day surgery (SDC) | payer OTHER, SELFPAY ==
[2025-01-26] VITALS (9 sets, daily range): BP systolic 103–127; BP diastolic 55–85; BMI 25.0
[2025-01-26] MEDS: NORMOSOL-R/PLASMALYTE-A 1000 IV (08:51)
[2025-01-26] MEDS: DETROL LA 4 MG PO (10:11)
[2025-01-26] MEDS: SUBLIMAZE 25 MCG IV ×2 (10:21→10:33)
[2025-01-26] MEDS: TYLENOL 650 MG PO (11:32)
[2025-01-31 12:18] LABS: Stone Analysis Mass 15 mg
== END 2025-01-26 11:45 | disposition home or self-care (01) ==
LOC: SDS 06:17
PROVIDERS: ATTENDING PHYSICIAN Surgery
DX: N13.2 Hydronephrosis with renal and ureteral calculous obstruction (principal)
CPT/HCPCS: 52356; 74018; 76000; 82365; C1894; C2617

== ENCOUNTER → 2025-01-30 11:53 | Outpatient (REF) | payer OTHER, SELFPAY | LOC: REG 11:53 | PROVIDERS: ATTENDING PHYSICIAN Surgery; FAMILY PHYSICIAN Family Medicine | DX: N13.2 Hydronephrosis with renal and ureteral calculous obstruction (principal) | CPT/HCPCS: 87070 ==

== ENCOUNTER → 2025-01-31 11:18 | Outpatient (REF) | payer OTHER, SELFPAY | LOC: REG 11:18 | PROVIDERS: ATTENDING PHYSICIAN Surgery; FAMILY PHYSICIAN Family Medicine | DX: N13.2 Hydronephrosis with renal and ureteral calculous obstruction (principal) | CPT/HCPCS: 87070 ==